=== PATIENT | male | born 1975 | race Caucasian/White ===

== ENCOUNTER 2017-12-04 09:58 | Day surgery (SDC) | payer OTHER ==
[2013-07-01 08:17] VITALS: BMI 31.6
[2017-12-04] MEDS ORDERED: Propofol 10 mg/ml Inj (20 ML) ONE (13:09)
[2017-12-04] MEDS ORDERED: Lactated Ringer's 500 ML IV ONE ×2 (13:10)
[2017-12-04 13:39] VITALS: TEMP 97.8
[2017-12-04 14:16] VITALS: O2SAT 99
[2017-12-04 14:25] VITALS: BP 128/81; PULSE 66; RESP 12
== END 2017-12-04 14:23 | disposition home or self-care (01) ==
LOC: C.ENDO 09:58
PROVIDERS: ATTEND Internal Medicine Gastroenterology
DX: K29.70 Gastritis, unspecified, without bleeding (principal); E66.9 Obesity, unspecified; Z68.34 Body mass index [BMI] 34.0-34.9, adult; R03.0 Elevated blood-pressure reading, without diagnosis of hypertension; K21.9 Gastro-esophageal reflux disease without esophagitis; K44.9 Diaphragmatic hernia without obstruction or gangrene; B96.81 Helicobacter pylori [H. pylori] as the cause of diseases classified elsewhere
CPT/HCPCS: 43239; 88305; 88313; 88342; J2001; J2704; J7120